=== PATIENT | male | born 1985 | race African-American/Black ===

== ENCOUNTER 2019-05-11 08:36 | Emergency (ER) | payer SELFPAY ==
[~2019-05-11] VITALS: Ht 167.6 cm; Wt 66.0 kg
[2019-05-11 09:00] VITALS: BP 122/76
[2019-05-11] MEDS ORDERED: AZITHROMYCIN 500 MG TABLET PO ONE (09:30)
[2019-05-11] MEDS ORDERED: CEFTRIAXONE SODIUM 250 MG/VIAL IM ONE (09:30)
[2019-05-11 09:35] LABS: CLARITY URINE CLOUDY (CLEAR); COLOR URINE DK YELLOW (YELLOW); KETONES URINE TRACE (NEGATIVE); LEUKOCYTE ESTERASE URINE 3+ (NEGATIVE); NITRITE URINE NEGATIVE (NEGATIVE); OCCULT BLOOD URINE 1+ (NEGATIVE); PROTEIN URINE 1+ (NEGATIVE); SPECIFIC GRAVITY URINE 1.033 (1.005-1.030)
[2019-05-11] MEDS ORDERED: LIDOCAINE HCL 1% 20ML VIAL (Pyxis) INJ INFIL ONE (09:45)
== END 2019-05-11 10:00 | disposition home or self-care (01) ==
LOC: ER 08:36
DX: R30.0 Dysuria (principal); N30.30 Trigonitis without hematuria; Z20.2 Contact with and (suspected) exposure to infections with a predominantly sexual mode of transmission
CPT/HCPCS: 81003; 87086; 96372; 99283; J0696

== ENCOUNTER 2019-05-17 14:29 | Emergency (ER) | payer MEDICAID ==
[~2019-05-17] VITALS: Ht 167.6 cm; Wt 66.0 kg
[2019-05-17 14:33] VITALS: BP 127/54
== END 2019-05-17 16:54 | disposition left against medical advice (07) ==
LOC: ER 14:29
DX: Z53.21 Procedure and treatment not carried out due to patient leaving prior to being seen by health care provider (principal)

== ENCOUNTER 2024-02-12 17:59 | Emergency (ER) | payer MEDICAID, OTHER ==
[~2024-02-12] VITALS: Ht 170.2 cm; Wt 65.0 kg
[2024-02-12 18:09] VITALS: BP 111/70; PULSE 60; RESP 16; TEMP 98.3; O2SAT 100
== END 2024-02-12 21:33 | disposition left against medical advice (07) ==
LOC: ER 17:59
DX: M25.551 Pain in right hip (principal); Z53.21 Procedure and treatment not carried out due to patient leaving prior to being seen by health care provider

== ENCOUNTER 2024-02-13 10:12 | Emergency (ER) | payer OTHER ==
[~2024-02-13] VITALS: Ht 170.2 cm; Wt 58.0 kg
[2024-02-13 10:24] VITALS: BP 105/69; TEMP 98.2; O2SAT 99
[2024-02-13 10:58] VITALS: PULSE 71; RESP 18; O2SAT 99
[2024-02-13] MEDS: CYCLOBENZAPRINE 10MG TABLET PO ONE (11:32)
[2024-02-13] MEDS: KETOROLAC 30MG/ML VIAL IM ONE (11:32)
== END 2024-02-13 13:00 | disposition home or self-care (01) ==
LOC: ER 10:12
DX: M25.551 Pain in right hip (principal); M25.511 Pain in right shoulder; Z86.59 Personal history of other mental and behavioral disorders; V43.52XA Car driver injured in collision with other type car in traffic accident, initial encounter; Y93.89 Activity, other specified; Y92.89 Other specified places as the place of occurrence of the external cause; Y99.8 Other external cause status
CPT/HCPCS: 99283; 73502; 96372; J1885; A4565

== ENCOUNTER 2024-07-27 01:29 | Emergency (ER) | payer OTHER ==
[~2024-07-27] VITALS: Ht 167.6 cm; Wt 57.0 kg
[2024-07-27 01:43] VITALS: O2SAT 99
[2024-07-27 02:02] VITALS: TEMP 37.2
[2024-07-27] MEDS ORDERED: BENZ200C52 MT (03:36)
[2024-07-27] MEDS ORDERED: IBUP-2029 MT (03:36)
[2024-07-27 03:43] VITALS: BP 108/69; PULSE 67; RESP 16; O2SAT 98
== END 2024-07-27 03:44 | disposition home or self-care (01) ==
LOC: ER 01:43
DX: J02.9 Acute pharyngitis, unspecified (principal)
CPT/HCPCS: 87070; 87430; 99283

== ENCOUNTER 2024-08-08 18:06 | Emergency (ER) | payer OTHER ==
[~2024-08-08] VITALS: Ht 167.6 cm; Wt 60.0 kg
[~2024-08-08 18:06] MED LIST: BENZ200C52 MT; IBUP-2029 MT
[2024-08-08 18:27] LABS: BASOPHILS % 0.4 % (0.0-2.0); EOSINOPHILS % 0.7 % (0.0-5.0); HEMATOCRIT. 41.2 % (42.0-52.0); HEMOGLOBIN. 13.2 g/dL (14.0-18.0); LYMPHOCYTES % 20.0 % (20.0-50.0); MEAN PLATELET VOLUME 7.9 fl (7.4-10.4); MONOCYTES % 8.0 % (2.0-8.0); NEUTROPHILS % 70.9 % (40.0-76.0); PLATELET 328 x1000/uL (130-400); RED BLOOD CELL COUNT 5.07 mill/uL (4.7-6.1); RED CELL DISTRIBUTION WIDTH 15.3 % (11.6-14.6)
[2024-08-08 18:34] VITALS: O2SAT 99
[2024-08-08 18:49] LABS: CREATININE 1.2 mg/dL (0.6-1.3); UREA NITROGEN BLOOD 9 mg/dL (9-23)
[2024-08-08 19:16] LABS: CLARITY URINE CLEAR (CLEAR); COLOR URINE YELLOW (YELLOW); GLUCOSE URINE NEGATIVE (NEGATIVE); KETONES URINE TRACE (NEGATIVE); LEUKOCYTE ESTERASE URINE TRACE (NEGATIVE); NITRITE URINE NEGATIVE (NEGATIVE); OCCULT BLOOD URINE NEGATIVE (NEGATIVE); PH URINE 5.5 (4.5-8.0); PROTEIN URINE NEGATIVE (NEGATIVE); SPECIFIC GRAVITY URINE 1.011 (1.005-1.030); UROBILINOGEN URINE 0.2 E.U./dL (0.2-1.0)
[2024-08-08 19:54] LABS: BACTERIA URINE 1+; RBC URINE 0-2 /hpf (0-2); SQUAMOUS EPITHELIAL CELL URINE 1+ /lpf (RARE/1+)
[2024-08-08] MEDS ORDERED: ONDANSETRON HCL 4MG/2ML INJ IV STA (20:04)
[2024-08-08] MEDS ORDERED: MORPHINE SULFATE 4 MG/ML INJ (FOR IV/IM USE) IV STA (20:04)
[2024-08-08] MEDS ORDERED: CEFTRIAXONE 1GM/50ML 50 ML IV ONE (20:15)
[2024-08-08 20:24] LABS: ASPARTATE AMINOTRANSFERASE 20 IU/L (<34); BILIRUBIN DIRECT 0.3 mg/dL (<=3.0); BILIRUBIN TOTAL 0.8 mg/dL (0.1-1.0); PROTEIN TOTAL 7.8 g/dL (6.0-8.3)
[2024-08-08] MEDS: ONDANSETRON HCL 4MG/2ML INJ IV SCH (21:25)
[2024-08-08] MEDS: MORPHINE SULFATE 4 MG/ML INJ (FOR IV/IM USE) IV SCH (21:26)
[2024-08-08] MEDS: CEFTRIAXONE 1GM/50ML 50 ML IV SCH (21:38)
[2024-08-08] MEDS: SODIUM CHLORIDE 0.9% 1,000 ML IV ONE (21:38)
[2024-08-09 01:08] VITALS: BP 106/60; PULSE 70; RESP 11; TEMP 36.6; O2SAT 99
== END 2024-08-09 01:30 | disposition short-term general hospital (02) ==
LOC: ER 18:06 → EDBEDREQ 20:26 → ER 08-09 01:30
DX: R10.84 Generalized abdominal pain (principal); R11.2 Nausea with vomiting, unspecified; N39.0 Urinary tract infection, site not specified; Z79.899 Other long term (current) drug therapy
CPT/HCPCS: 99285; 74176; 96365; 96375; 71045; 80076; 80048; 81003; 83690; 85025; 87086; 36415; 93005; J0696; J2405; J2270; J7030

== ENCOUNTER 2024-12-06 11:20 | Emergency (ER) | payer OTHER ==
[~2024-12-06] VITALS: Ht 167.6 cm; Wt 58.0 kg
[~2024-12-06 11:20] MED LIST changes: +IBUP-1455 MT; -IBUP-2029 MT
[2024-12-06 11:21] VITALS: O2SAT 98
[2024-12-06] MEDS ORDERED: OXYC-105 PO (11:23)
[2024-12-06 11:48] VITALS: TEMP 37.2; O2SAT 96
[2024-12-06 13:59] VITALS: BP 103/56; PULSE 99; RESP 16
[2024-12-06] MEDS: IBUPROFEN 600MG TABLET PO ONE (13:59)
== END 2024-12-06 14:35 | disposition home or self-care (01) ==
LOC: ER 11:20
DX: S01.112A Laceration without foreign body of left eyelid and periocular area, initial encounter (principal); W22.8XXA Striking against or struck by other objects, initial encounter; X58.XXXA Exposure to other specified factors, initial encounter; Y93.89 Activity, other specified; Y92.89 Other specified places as the place of occurrence of the external cause; Y99.8 Other external cause status
CPT/HCPCS: 12011; 99283